=== PATIENT | male | born 1980 | race Hispanic/Latino ===

== ENCOUNTER 2024-08-19 21:11 | Emergency (ER) | payer OTHER ==
[2024-08-19] MEDS ORDERED: Ketorolac Tromethamine 30 MG (1 mL) VIAL ONE (21:21)
== END 2024-08-19 21:45 ==
LOC: CSHERS 21:11 → EEVIPCON 21:11 → CSHERS 21:45
DX: R22.2 Localized swelling, mass and lump, trunk (principal); R07.9 Chest pain, unspecified
CPT/HCPCS: 96372; 99284; J1885